=== PATIENT | female | born 1945 | race Caucasian/White ===

== ENCOUNTER → 2021-08-06 | Outpatient (CLI) | payer MEDICARE | LOC: HEART CORB 09:51 | DX: R94.31 Abnormal electrocardiogram [ECG] [EKG] (principal); R07.2 Precordial pain; I44.7 Left bundle-branch block, unspecified; R06.02 Shortness of breath; I08.8 Other rheumatic multiple valve diseases | CPT/HCPCS: 78452; 93306; A9502; J0461; J2785 ==